=== PATIENT | male | born 1965 | race Caucasian/White ===

== ENCOUNTER 2019-09-04 12:43 | Emergency (ER) | payer OTHER ==
[~2019-09-04] VITALS: Ht 193 cm; Wt 111.1 kg
[2019-09-04 14:06] LABS: BASOPHILS ABSOLUTE AUTO 0.01 K/mm3 (0.00-0.23); BASOPHILS PERCENT AUTO 0 % (0-2); EOSINOPHILS ABSOLUTE AUTO 0.03 K/mm3 (0.00-0.68); EOSINOPHILS PERCENT AUTO 0 % (0-6); Hematocrit 42.4 % (37.0-53.0); Hemoglobin 14.8 g/dL (13.5-17.5); IMMATURE GRAN ABSOLUTE AUTO 0.01 K/mm3 (0.00-0.10); IMMATURE GRAN PERCENT AUTO 0 % (0-1); LYMPHOCYTES ABSOLUTE AUTO 1.35 K/mm3 (0.84-5.20); LYMPHOCYTES PERCENT AUTO 16 % (21-46); MONOCYTES PERCENT AUTO 7 % (4-13); Mean Corpuscular HGB 30.4 pg (26.0-34.0); Mean Corpuscular HGB Conc 34.9 g/dL (31.5-36.5); Mean Corpuscular Volume 87 fL (80-100); Mean Platelet Volume 9.9 fL (9.1-12.4); NEUTROPHILS ABSOLUTE AUTO 6.24 K/mm3 (1.96-9.15); NEUTROPHILS PERCENT AUTO 76 % (41-73); Platelet Count 199 K/mm3 (150-400); RDW Coefficient Variation 11.8 % (11.7-14.2); RDW Standard Deviation 37.9 fL (35.1-46.3); Red Blood Cell Count 4.87 M/mm3 (4.30-5.90); White Blood Cell Count 8.24 K/mm3 (4.00-11.30)
[2019-09-04 14:22] LABS: Alanine Aminotransfer (ALT/SGP 30 U/L (12-78); Albumin, Blood 4.2 g/dL (3.4-5.0); Albumin/Globulin Ratio 1.2 (0.8-1.8); Alk Phos 66 U/L (50-136); Anion Gap 5 mmol/L (6-16); Aspartate Aminotrans (AST/SGOT 20 U/L (12-37); Bilirubin, Total 0.7 mg/dL (0.1-1.0); Blood Urea Nitrogen 21 mg/dL (8-24); Bun/Creatinine Ratio 30.1 (12.0-20.0); CO2, Blood 28 mmol/L (21-32); Calcium, Blood 9.4 mg/dL (8.5-10.1); Chloride, Blood 106 mmol/L (98-108); Ethanol (Alcohol), Blood, Med <3 mg/dL; Globulin, Blood 3.5 g/dL (2.2-4.0); Glomerular Filtration Rate >60 (60-); Glucose, Blood 213 mg/dL (70-99); Magnesium, Blood 2.1 mg/dL (1.6-2.4); Potassium, Blood 3.7 mmol/L (3.5-5.5); Sodium, Blood 139 mmol/L (136-145); Total Protein, Blood 7.7 g/dL (6.4-8.2)
[2019-09-04] MEDS ORDERED: ONDA4ODT MM (15:11)
== END 2019-09-04 15:21 | disposition home or self-care (01) ==
LOC: ER 12:43
PROVIDERS: Emergency Medicine
DX: E86.0 Dehydration (principal); R11.2 Nausea with vomiting, unspecified; Z87.891 Personal history of nicotine dependence
CPT/HCPCS: 36415; 80053; 83735; 85025; 96361; 96374; 99283-25; G0480; J2405; J7030

== ENCOUNTER 2019-10-11 13:32 | Emergency (ER) | payer OTHER ==
[~2019-10-11] VITALS: Ht 193 cm; Wt 108.9 kg
[~2019-10-11 13:32] MED LIST: ATOR80 PO; CLOTRIMAZOLE 321 GM TOP; GLIM4 PO; LISI20 PO; METF500 PO; Naltrexone HCl50 MG PO; ONDA4ODT MM; PIOG30 PO; Prozac40 MG PO
[2019-10-11] MEDS ORDERED: ABILIFY MYCITE2 MG PO (13:40)
[2019-10-11] MEDS ORDERED: Monodox100 MG PO (14:11)
[2019-10-11] MEDS ORDERED: CEPH500 PO (14:11)
== END 2019-10-11 14:26 | disposition home or self-care (01) ==
LOC: ER 13:32
DX: L03.031 Cellulitis of right toe (principal); E11.9 Type 2 diabetes mellitus without complications; Z79.84 Long term (current) use of oral hypoglycemic drugs; Z79.899 Other long term (current) drug therapy
CPT/HCPCS: 99283

== ENCOUNTER 2022-02-02 11:31 | Emergency (ER) | payer OTHER ==
[~2022-02-02] VITALS: Ht 193 cm; Wt 111.1 kg
[~2022-02-02 11:31] MED LIST changes: +ABILIFY MYCITE2 MG PO; +CEPH500 PO; +Monodox100 MG PO
[2022-02-02 13:04] LABS: BASOPHILS ABSOLUTE AUTO 0.01 K/mm3 (0.00-0.23); BASOPHILS PERCENT AUTO 0 % (0-2); EOSINOPHILS ABSOLUTE AUTO 0.25 K/mm3 (0.00-0.68); EOSINOPHILS PERCENT AUTO 3 % (0-6); Hematocrit 28.8 % (37.0-53.0); Hemoglobin 9.4 g/dL (13.5-17.5); IMMATURE GRAN ABSOLUTE AUTO 0.04 K/mm3 (0.00-0.10); IMMATURE GRAN PERCENT AUTO 1 % (0-1); LYMPHOCYTES ABSOLUTE AUTO 1.49 K/mm3 (0.84-5.20); LYMPHOCYTES PERCENT AUTO 20 % (21-46); MONOCYTES ABSOLUTE AUTO 0.51 K/mm3 (0.16-1.47); MONOCYTES PERCENT AUTO 7 % (4-13); Mean Corpuscular HGB 28.7 pg (26.0-34.0); Mean Corpuscular HGB Conc 32.6 g/dL (31.5-36.5); Mean Corpuscular Volume 88 fL (80-100); Mean Platelet Volume 10.2 fL (9.1-12.4); NEUTROPHILS ABSOLUTE AUTO 5.19 K/mm3 (1.96-9.15); NEUTROPHILS PERCENT AUTO 69 % (41-73); Platelet Count 306 K/mm3 (150-400); RDW Coefficient Variation 12.3 % (11.7-14.2); RDW Standard Deviation 40.2 fL (35.1-46.3); Red Blood Cell Count 3.27 M/mm3 (4.30-5.90); White Blood Cell Count 7.49 K/mm3 (4.00-11.30)
[2022-02-02 13:25] LABS: Albumin/Globulin Ratio 0.7 (0.8-1.8); Bilirubin, Total 0.2 mg/dL (0.1-1.0); Bun/Creatinine Ratio 27.9 (12.0-20.0); Calcium, Blood 8.5 mg/dL (8.5-10.1); Creatinine, Blood 1.11 mg/dL (0.60-1.20); Globulin, Blood 4.3 g/dL (2.2-4.0); Potassium, Blood 4.1 mmol/L (3.5-5.5); Total Protein, Blood 7.3 g/dL (6.4-8.2)
== END 2022-02-02 16:38 | disposition left against medical advice (07) ==
LOC: ER 11:31
PROVIDERS: Physician Assistant
DX: L08.9 Local infection of the skin and subcutaneous tissue, unspecified (principal); Z53.21 Procedure and treatment not carried out due to patient leaving prior to being seen by health care provider
CPT/HCPCS: 36415; 73630; 80053; 85025

== ENCOUNTER → 2022-02-04 | Outpatient (CLI) | payer OTHER ==
[2022-02-04 12:44] LABS: BASOPHILS ABSOLUTE AUTO 0.02 K/mm3 (0.00-0.23); BASOPHILS PERCENT AUTO 0 % (0-2); EOSINOPHILS ABSOLUTE AUTO 0.14 K/mm3 (0.00-0.68); EOSINOPHILS PERCENT AUTO 1 % (0-6); Hematocrit 28.8 % (37.0-53.0); Hemoglobin 9.5 g/dL (13.5-17.5); IMMATURE GRAN ABSOLUTE AUTO 0.03 K/mm3 (0.00-0.10); IMMATURE GRAN PERCENT AUTO 0 % (0-1); LYMPHOCYTES ABSOLUTE AUTO 1.87 K/mm3 (0.84-5.20); LYMPHOCYTES PERCENT AUTO 18 % (21-46); MONOCYTES ABSOLUTE AUTO 0.65 K/mm3 (0.16-1.47); MONOCYTES PERCENT AUTO 6 % (4-13); Mean Corpuscular HGB 28.9 pg (26.0-34.0); Mean Corpuscular Volume 88 fL (80-100); Mean Platelet Volume 9.6 fL (9.1-12.4); NEUTROPHILS ABSOLUTE AUTO 7.44 K/mm3 (1.96-9.15); NEUTROPHILS PERCENT AUTO 73 % (41-73); Platelet Count 321 K/mm3 (150-400); RDW Coefficient Variation 12.5 % (11.7-14.2); RDW Standard Deviation 40.3 fL (35.1-46.3); Red Blood Cell Count 3.29 M/mm3 (4.30-5.90); White Blood Cell Count 10.15 K/mm3 (4.00-11.30)
[2022-02-04 13:38] LABS: Albumin, Blood 2.9 g/dL (3.4-5.0); Albumin/Globulin Ratio 0.7 (0.8-1.8); Bilirubin, Total 0.3 mg/dL (0.1-1.0); Bun/Creatinine Ratio 23.8 (12.0-20.0); Calcium, Blood 9.2 mg/dL (8.5-10.1); Creatinine, Blood 0.84 mg/dL (0.60-1.20); Globulin, Blood 4.3 g/dL (2.2-4.0); Potassium, Blood 3.8 mmol/L (3.5-5.5); Total Protein, Blood 7.2 g/dL (6.4-8.2)
== END | disposition home or self-care (01) ==
LOC: LAB SHORT 12:39
PROVIDERS: Emergency Medicine
DX: L08.9 Local infection of the skin and subcutaneous tissue, unspecified (principal)
CPT/HCPCS: 80053; 85025; 85651; 86140

== ENCOUNTER 2022-02-21 03:00 | Day surgery (SDC) | payer OTHER | END 2022-02-21 23:10 | disposition home or self-care (01) | LOC: WOUND 03:00 | DX: E11.621 Type 2 diabetes mellitus with foot ulcer (principal); L97.522 Non-pressure chronic ulcer of other part of left foot with fat layer exposed; L97.526 Non-pressure chronic ulcer of other part of left foot with bone involvement without evidence of necrosis; I73.9 Peripheral vascular disease, unspecified; E11.40 Type 2 diabetes mellitus with diabetic neuropathy, unspecified; E11.59 Type 2 diabetes mellitus with other circulatory complications; F17.200 Nicotine dependence, unspecified, uncomplicated | CPT/HCPCS: 99406; A9270; G0463 ==

== ENCOUNTER 2022-02-27 16:05 | Inpatient (IN) | payer OTHER ==
[~2022-02-27] VITALS: Ht 193 cm; Wt 110.0 kg
[2022-02-27 16:33] LABS: BASOPHILS ABSOLUTE AUTO 0.03 K/mm3 (0.00-0.23); BASOPHILS PERCENT AUTO 0 % (0-2); EOSINOPHILS ABSOLUTE AUTO 0.04 K/mm3 (0.00-0.68); EOSINOPHILS PERCENT AUTO 0 % (0-6); Hematocrit 25.7 % (37.0-53.0); Hemoglobin 8.5 g/dL (13.5-17.5); IMMATURE GRAN ABSOLUTE AUTO 0.12 K/mm3 (0.00-0.10); IMMATURE GRAN PERCENT AUTO 1 % (0-1); LYMPHOCYTES PERCENT AUTO 6 % (21-46); MONOCYTES ABSOLUTE AUTO 1.28 K/mm3 (0.16-1.47); MONOCYTES PERCENT AUTO 7 % (4-13); Mean Corpuscular HGB Conc 33.1 g/dL (31.5-36.5); Mean Corpuscular Volume 85 fL (80-100); Mean Platelet Volume 10.3 fL (9.1-12.4); NEUTROPHILS ABSOLUTE AUTO 16.18 K/mm3 (1.96-9.15); NEUTROPHILS PERCENT AUTO 86 % (41-73); Platelet Count 404 K/mm3 (150-400); RDW Coefficient Variation 12.4 % (11.7-14.2); Red Blood Cell Count 3.04 M/mm3 (4.30-5.90); White Blood Cell Count 18.75 K/mm3 (4.00-11.30)
[2022-02-27 16:53] LABS: Albumin, Blood 2.5 g/dL (3.4-5.0); Albumin/Globulin Ratio 0.5 (0.8-1.8); Bilirubin, Total 0.5 mg/dL (0.1-1.0); Bun/Creatinine Ratio 22.1 (12.0-20.0); Calcium, Blood 8.7 mg/dL (8.5-10.1); Creatinine, Blood 1.45 mg/dL (0.60-1.20); Globulin, Blood 4.6 g/dL (2.2-4.0); Potassium, Blood 3.5 mmol/L (3.5-5.5); Total Protein, Blood 7.1 g/dL (6.4-8.2)
[2022-02-27] MEDS ORDERED: Hydroxyzine HCl50 MG (18:27)
[2022-02-27] MEDS ORDERED: FER-IN-SOL15 MG/1 M1 PO (18:27)
[2022-02-27] MEDS ORDERED: Cipro500 MG PO (18:27)
[2022-02-27] MEDS ORDERED: INSULIN GL100 UNIT/2 SQ (18:27)
[2022-02-27] MEDS ORDERED: ALOGLIPTIN25 M7 PO (18:28)
[2022-02-27] MEDS ORDERED: OMEP20ER PO (18:28)
[2022-02-27 20:09] LABS: Influenza A, PCR NEGATIVE (NEGATIVE); Influenza B, PCR NEGATIVE (NEGATIVE); Resp Syncytial Virus, PCR NEGATIVE (NEGATIVE); SARS-Cov-2 (COVID-19) PCR, MMC NEGATIVE (NEGATIVE)
[2022-02-27 20:41] LABS: Source, Urine Clean Catch
[2022-02-27 20:48] LABS: Appearance, Urine Clear (Clear); Bilirubin, Urine Neg (Neg); Blood, Urine 2+ (Neg); Color, Urine Yellow (P-Yellow); Glucose Qualitative, Urine Neg (Neg); Ketones, Urine Neg (Neg); Leukocyte Esterase, Urine Neg (Neg); Nitrite, Urine Neg (Neg); Protein, Urine 2+ (Neg); Urobilinogen, Urine NORM (Normal)
[2022-02-27 20:56] LABS: Bacteria Few /hpf; Hyaline Casts 0-2 /lpf (0-2); Squamous Epithelial Cells Rare /hpf (Few)
[2022-02-28] MEDS ORDERED: OMEP20ER PO (00:37)
[2022-02-28] MEDS ORDERED: FeroSul 325 mg (65 m (01:53)
[2022-02-28 04:02] LABS: Hematocrit 19.9 % (37.0-53.0); Hemoglobin 6.5 g/dL (13.5-17.5); Mean Corpuscular HGB 27.8 pg (26.0-34.0); Mean Corpuscular HGB Conc 32.7 g/dL (31.5-36.5); Mean Corpuscular Volume 85 fL (80-100); Mean Platelet Volume 10.5 fL (9.1-12.4); Platelet Count 276 K/mm3 (150-400); RDW Coefficient Variation 12.4 % (11.7-14.2); RDW Standard Deviation 38.4 fL (35.1-46.3); Red Blood Cell Count 2.34 M/mm3 (4.30-5.90); White Blood Cell Count 12.38 K/mm3 (4.00-11.30)
--- NOTE | 2022-02-28 04:17 | NUR ---
CALL TO HOSPITALIST THIS RN CALLS DR FISHER TO NOTIFY OF HYPOTENSION, DR FISHER ORDERS OT LR BOLUS NOW AND STATES IF PT DOES NOT RESPOND WITHIN 20 MINS OF BOLUS PT WILL NEED TO TRANSFER TO ICU.
[2022-02-28 04:26] LABS: Bun/Creatinine Ratio 25.6 (12.0-20.0); Calcium, Blood 7.4 mg/dL (8.5-10.1); Creatinine, Blood 1.29 mg/dL (0.60-1.20); Potassium, Blood 3.5 mmol/L (3.5-5.5)
[2022-02-28 05:27] LABS: Percent Saturation 10.5 % (20.0-50.0)
--- NOTE | 2022-02-28 07:47 | NUR ---
SHIFT SUMMARY PT AOX4, PALE ON ARRIVAL TO UNIT. BOLUS FINISHED FROM ARRIVAL TO ROOM FROM ER. EPISODE OF AFIB W/RATE IN 130'S REPORTED BY ER ON ROUTE OVER TO PCU. RESOLVED ON ARRIVAL. EKG PERFORMED AND TROPONIN DRAWN PER DR FISHER. PT DENIED CP. SBP DROPPED AFTER START OF ZOSYN INFUSION THIS AM, AFTER HYPOTENSION CONTINUED FLUID BOLUS OF LR ORDERED AFTER CONTACTING DR FISHER. PT BP REMAINED LOW T/O BOLUS, ORDER TO TRANSFER TO ICU. TRANSFER CANCELED D/T SBP INCREASING TO 110'S-120'S MAPS >70. DIFFICULTY DRAWING BLOOD THIS AM AFTER MULTIPLE ATTEMPTS BY STAFF. POWERGLIDE PLACED BY CECILIO SMITH. NS MAINTENANCE FLUID CONTINUES INFUSING THIS AM W/ ZOSYN CONTINUING CONCURRENT.
--- NOTE | 2022-02-28 09:02 | NUR ---
CARE ASSUMPTION THIS RN ASSUMED CARE AT 0700. VSS. TELE SR 70S. PATIENT REPORTS NO PAIN, NO CHEST PAIN/PRESSURE AND NO SHORTNESS OF BREATH. PATIENT IS ALERT AND ORIENTED X4. PATIENT IS INDEPDENT, AND THIS RN HAS THE PATIENT CALL SO THAT WE CAN ASSSIT WITH THE CORDS AND LINES. PATIENT HAS A LEFT FOOT INFECTION. PICTURES ARE IN CHART. PATIENT LUNG SOUNDS ARE CLEAR. SEE SHIFT ASSESSMENT FOR FURTHER DETIALS. PATIENT IS RECEIVING ONE UNIT OF BLOOD. THIS RN EDUCATED THE PATIENT ON BLOOD TRANSFUSION REACTIONS. VITAL SIGNS REMAIN STABLE. NICOLETTE KHAN AND JADEN BY TO SEE PATIENT THIS AM AND DISCUSSED PLAN OF CARE. PLAN OF CARE IS UP TO DATE CALL LIGHT WITHIN REACH AND BED IN LOWEST POSITION.
--- NOTE | 2022-02-28 10:31 | NUR ---
Echocardiogram completed.
--- NOTE | 2022-02-28 11:10 | NUR ---
UPDATE PATIENT WILL GO INTO SURGERY THIS AFTERNOON. PATIENT IS GOING TO RECEIVE ANOTHER UNIT OF BLOOD PER MD ORDERS.
--- NOTE | 2022-02-28 11:48 | NUR ---
BLOOD 2ND BLOOD TRANSFUSION STARTED.
--- NOTE | 2022-02-28 12:40 | NUR ---
LEFT FOR SURGERY PATIENT LEFT AT APPROX 1215 FOR SURGERY.
--- NOTE | 2022-02-28 16:19 | NUR ---
BACK FROM SURGERY PATIENT BACK FROM DAY SURGERY. 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 VSS. PATIENT IN PAIN RATED AT 9 OUT OF 110, WITH 19 BEING THE WORST PAIN. NOTIFED SURGERON. AND WILL MEDICATE PER ORDERS.
[2022-02-28 16:37] LABS: Hematocrit 23.9 % (37.0-53.0); Hemoglobin 7.7 g/dL (13.5-17.5)
--- NOTE | 2022-02-28 17:29 | NUR ---
SHIFT SUMMARY PATIENT NEURO REMAINS INTACT. VITAL SIGNS REMAIN STABLE. PATIENT HAD A BELOW KNEE AMPUTATION. LIMB HAS BEEN ELEVATED ON A PILLOW. PATIENT RECEIVED PAIN MED PER EMAR THAT BROUGHT PAIN DOWN TO A 5. PLAN OF CARE IS UP TO DATE. PATIENT USES CALL LIGHT APPROPRIATELY TO MAKE NEEDS KNOWN. CALL LIGHT WITHIN REACH WITH BED IN LOWEST POSITION.
[2022-02-28 20:31] LABS: Vancomycin, Trough 18.4 ug/mL (5.0-10.0)
--- NOTE | 2022-03-01 01:19 | NUR ---
IV IN RIGHT WRIST REMOVED DUE TO BEING UNABLE TO FLUSH. CATHETER INTACT WITH REMOVAL.
[2022-03-01 05:06] LABS: BASOPHILS ABSOLUTE AUTO 0.01 K/mm3 (0.00-0.23); BASOPHILS PERCENT AUTO 0 % (0-2); EOSINOPHILS ABSOLUTE AUTO 0.01 K/mm3 (0.00-0.68); EOSINOPHILS PERCENT AUTO 0 % (0-6); Hematocrit 22.3 % (37.0-53.0); Hemoglobin 7.6 g/dL (13.5-17.5); IMMATURE GRAN ABSOLUTE AUTO 0.11 K/mm3 (0.00-0.10); IMMATURE GRAN PERCENT AUTO 1 % (0-1); LYMPHOCYTES ABSOLUTE AUTO 0.77 K/mm3 (0.84-5.20); LYMPHOCYTES PERCENT AUTO 7 % (21-46); MONOCYTES ABSOLUTE AUTO 0.68 K/mm3 (0.16-1.47); MONOCYTES PERCENT AUTO 7 % (4-13); Mean Corpuscular HGB 28.3 pg (26.0-34.0); Mean Corpuscular HGB Conc 34.1 g/dL (31.5-36.5); Mean Corpuscular Volume 83 fL (80-100); Mean Platelet Volume 10.3 fL (9.1-12.4); NEUTROPHILS ABSOLUTE AUTO 8.91 K/mm3 (1.96-9.15); NEUTROPHILS PERCENT AUTO 85 % (41-73); Platelet Count 313 K/mm3 (150-400); RDW Standard Deviation 39.3 fL (35.1-46.3); Red Blood Cell Count 2.69 M/mm3 (4.30-5.90); White Blood Cell Count 10.49 K/mm3 (4.00-11.30)
[2022-03-01 05:55] LABS: Albumin, Blood 1.8 g/dL (3.4-5.0); Anion Gap 10 mmol/L (6-16); Blood Urea Nitrogen 31 mg/dL (8-24); Bun/Creatinine Ratio 25.4 (12.0-20.0); CO2, Blood 22 mmol/L (21-32); Calcium, Blood 7.8 mg/dL (8.5-10.1); Chloride, Blood 103 mmol/L (98-108); Creatinine, Blood 1.22 mg/dL (0.60-1.20); Glomerular Filtration Rate 70 (60-); Glucose, Blood 226 mg/dL (70-99); Phosphorus, Blood 4.4 mg/dL (2.5-4.9); Potassium, Blood 3.9 mmol/L (3.5-5.5); Sodium, Blood 135 mmol/L (136-145)
--- NOTE | 2022-03-01 07:37 | NUR ---
SHIFT SUMMARY PT AOX4, SOME DROWSINESS W/PAIN MEDICATIONS. VERY ACTIVE IN BED, FREQUENTLY REPOSITIONING AND RESTLESS. DRESSING CAME OFF TWICE HAD TO BE REPLACED BY STAFF. SOME SPOTTING FROM R SIDE OF L BKA SITE. THIS RN REPLACED DRESSING THIS AM A THIRD TIME TO EXAMINE SITE D/T PT STATING HE ACCIDENTALLY DROPPED SITE TO FLOOR FORGETTING THE BKA WHEN HE WAS SITTING ON THE EDGE OF BED TO USE THE URINAL THIS AM. PT SEEMS TO FREQUENTLY FORGET FOOT IS GONE ON L. SEEMED IN [employer] T/O SHIFT DESPITE RESTLESSNESS AND PAIN. PAIN SEEMED WELL CONTROLLED WITH MEDICATIONS PER EMAR.
--- NOTE | 2022-03-01 09:03 | NUR ---
03/01/22 0903 Itzel Rayo VERIFICATIONS: EDIT CHART.
--- NOTE | 2022-03-01 13:08 | NUR ---
PATIENT ARRIVED TO SURGICAL UNIT VIA BED. VSS ON RA. PAIN REPORTED TO BE 7/10 TO LEFT LEG, PLAN TO MEDICATE PER EMAR. PATIENT REPORTS IT TO BE PHANTOM PAIN. STUMP SOCK IN PLACE, C/D/I. ORIENTED TO ROOM & CALL LIGHT.
--- NOTE | 2022-03-01 17:27 | NUR ---
SHIFT SUMMARY NO ACUTE CHANGES SINCE ARRIVAL TO UNIT. POD 1 LEFT BKA, STUMP SOCK IN PALCE, C/D/I. PAIN MANAGED PER EMAR. EATING, DRINKING, & VOIDING WELL W/O DIFFICULTY. CALL LIGHT IN REACH, WILL REPORT TO ONCOMING RN AT 1900.
[2022-03-02 04:36] LABS: BASOPHILS ABSOLUTE AUTO 0.02 K/mm3 (0.00-0.23); BASOPHILS PERCENT AUTO 0 % (0-2); EOSINOPHILS ABSOLUTE AUTO 0.12 K/mm3 (0.00-0.68); EOSINOPHILS PERCENT AUTO 2 % (0-6); Hematocrit 21.4 % (37.0-53.0); Hemoglobin 7.3 g/dL (13.5-17.5); IMMATURE GRAN ABSOLUTE AUTO 0.09 K/mm3 (0.00-0.10); IMMATURE GRAN PERCENT AUTO 1 % (0-1); LYMPHOCYTES ABSOLUTE AUTO 1.16 K/mm3 (0.84-5.20); LYMPHOCYTES PERCENT AUTO 15 % (21-46); MONOCYTES ABSOLUTE AUTO 0.84 K/mm3 (0.16-1.47); MONOCYTES PERCENT AUTO 11 % (4-13); Mean Corpuscular HGB 28.6 pg (26.0-34.0); Mean Corpuscular HGB Conc 34.1 g/dL (31.5-36.5); Mean Corpuscular Volume 84 fL (80-100); Mean Platelet Volume 10.4 fL (9.1-12.4); NEUTROPHILS ABSOLUTE AUTO 5.77 K/mm3 (1.96-9.15); NEUTROPHILS PERCENT AUTO 72 % (41-73); Platelet Count 313 K/mm3 (150-400); RDW Coefficient Variation 12.9 % (11.7-14.2); RDW Standard Deviation 39.4 fL (35.1-46.3); Red Blood Cell Count 2.55 M/mm3 (4.30-5.90)
[2022-03-02 05:04] LABS: Vancomycin, Trough 11.2 ug/mL (5.0-10.0)
[2022-03-02 05:09] LABS: Albumin, Blood 1.8 g/dL (3.4-5.0); Anion Gap 6 mmol/L (6-16); Blood Urea Nitrogen 28 mg/dL (8-24); Bun/Creatinine Ratio 29.1 (12.0-20.0); CO2, Blood 26 mmol/L (21-32); Calcium, Blood 7.9 mg/dL (8.5-10.1); Chloride, Blood 105 mmol/L (98-108); Creatinine, Blood 0.96 mg/dL (0.60-1.20); Glomerular Filtration Rate 93 (60-); Glucose, Blood 199 mg/dL (70-99); Phosphorus, Blood 2.9 mg/dL (2.5-4.9); Sodium, Blood 137 mmol/L (136-145)
--- NOTE | 2022-03-02 06:12 | NUR ---
Patient dressing clean, dry, and intact. PRN meds given. Moderate x1 nurse assist from bed to bedside commode, x1 bowel movement. Voiding well. 0600 Patient sleeping. No acute questions or concerns at this time.
--- NOTE | 2022-03-02 14:56 | NUR ---
SHIFT SUMMARY: POD 2 LEFT BKA NO SIGNIFICANT CHANGES DURING THE SHIFT. PAIN IS MANAGED WITH ORAL PAIN MEDICATIONS. DR. DUMONT WENT IN AND CHANGED THE DRESSING SO THE DRESSING IS C/D/I WITH HIS STUMP SOCK OVER THE AQUACEL. HE IS A SBA WITH FWW TO THE BSC OR CHAIR. PATIENT IS TOLERATING SMALL AMOUNTS OF PO INTAKE AND HAS STATED "I JUST DON'T REALLY LIKE THE FOOD HERE". PATIENT IS VOIDING AND HAD A SMEAR OF A BM THIS MORNING. CALLS APPROPRIATELY. CALL LIGHT WITHIN REACH. THE PLAN IS FOR THE PATIENT TO BE DISCHARGED TO A SNF WHEN A BED IS AVAILABLE.
[2022-03-02 15:44] LABS: Hematocrit 25.1 % (37.0-53.0); Hemoglobin 8.3 g/dL (13.5-17.5)
--- NOTE | 2022-03-03 04:43 | NUR ---
LACROSSE PLAYER SUMMARY PT IS POD 2 FOR A L BKA. PT DOES FAIRLY WELL AMBULATING TO [facility] USING FWW AND STAFF ASSIST. MEDICATED FOR L LEG PAIN X1 AT BEDTIME WITH ORDERED PERCOCET. PT DOES COMPLAIN OF SOME PHANTOM PAINS AND FEELINGS OF HIS L LEG. PT GIVEN PRN ATARAX THIS AM FOR A SPELL OF ANXIETY. PRN HYDRALAZINE REQUIRED FOR HTN THIS AM. WILL CONTINUE TO MONITOR.
--- NOTE | 2022-03-03 05:30 | NUR ---
HYPERTENSION SBP >170 WITH MORNING VITALS. PT HAS PRN IV HYDRALAZINE BUT DOES NOT HAVE IV ACCESS PER ORDER. NOTIFIED DR FISHER WHO GAVE ORDER TO GIVE 0900 SCHEDULED NORVASC AND LISINOPRIL NOW. MEDS GIVEN PER ORDER, WILL CONTINUE TO MONITOR.
--- NOTE | 2022-03-03 07:36 | NUR ---
DR STANLEY IN TO SEE PT. DISCUSSED HYPERTENSION AND ANXIETY.
--- NOTE | 2022-03-03 11:42 | NUR ---
CALLED REPORT TO [facility] AT [facility].
--- NOTE | 2022-03-03 12:07 | NUR ---
PT LEFT UNIT IN WC WITH TRANSPORT POSSESSIONS IN HAND. TRANSPORTER HAS DC PAPERWORK.
== END 2022-03-03 12:07 | DRG 853 ==
LOC: ER 16:05 → SURS 22:09 → PCU 22:09 → SURS 03-01 13:11
PROVIDERS: Family Medicine Adult Medicine; Internal Medicine; Student in an Organized Health Care Education/Training Program; ADMIT Internal Medicine
PROC: 3E03329 Introduction of Other Anti-infective into Peripheral Vein, Percutaneous Approach (ICD-10-PCS; principal; 2022-02-27)
PROC: 3E02340 Introduction of Influenza Vaccine into Muscle, Percutaneous Approach (ICD-10-PCS; 2022-02-27)
PROC: 30233N1 Transfusion of Nonautologous Red Blood Cells into Peripheral Vein, Percutaneous Approach (ICD-10-PCS; 2022-02-28)
PROC: 0Y6J0Z3 Detachment at Left Lower Leg, Low, Open Approach (ICD-10-PCS; 2022-02-28)
DX: A41.9 Sepsis, unspecified organism (principal); I21.A1 Myocardial infarction type 2; M86.171 Other acute osteomyelitis, right ankle and foot; N17.9 Acute kidney failure, unspecified; E87.1 Hypo-osmolality and hyponatremia; E11.52 Type 2 diabetes mellitus with diabetic peripheral angiopathy with gangrene; I96 Gangrene, not elsewhere classified; Z23 Encounter for immunization; Z20.822 Contact with and (suspected) exposure to COVID-19; R65.20 Severe sepsis without septic shock; I95.9 Hypotension, unspecified; D63.8 Anemia in other chronic diseases classified elsewhere; G54.7 Phantom limb syndrome without pain; E11.628 Type 2 diabetes mellitus with other skin complications; Z88.8 Allergy status to other drugs, medicaments and biological substances; Z79.2 Long term (current) use of antibiotics; Z79.4 Long term (current) use of insulin; Z79.899 Other long term (current) drug therapy
CPT/HCPCS: 0241U; 36415; 71046; 73630; 80048; 80053; 80069; 80202; 81001; 82728; 82947; 83036; 83540; 83550; 83605; 83735; 83880; 84484; 85014; 85018; 85025; 85027; 85651; 86140; 86141; 86850; 86900; 86901; 86923; 87040; 88307; 90686; 93005; 93010; 93306; 96365; 96366; 96367; 96368; 96375; 97110; 97162; 97166; 97530; 97535; 99285-25; A9270; C1751; C9113; J0171; J0744; J1100; J1170; J1815; J2185; J2250; J2270; J2370; J2405; J2543; J2704; J3010; J3370; J7030; J7050; J7120; P9016

== ENCOUNTER 2022-05-18 02:20 | Day surgery (SDC) | payer OTHER ==
[~2022-05-18 02:20] MED LIST changes: +ALOGLIPTIN25 M7 PO; +Cipro500 MG PO; +FER-IN-SOL15 MG/1 M1 PO; +FeroSul 325 mg (65 m; +Hydroxyzine HCl50 MG; +INSULIN GL100 UNIT/2 SQ; +OMEP20ER PO
== END 2022-05-18 22:54 | disposition home or self-care (01) ==
LOC: WOUND 02:20
DX: E11.621 Type 2 diabetes mellitus with foot ulcer (principal); L97.412 Non-pressure chronic ulcer of right heel and midfoot with fat layer exposed; E11.51 Type 2 diabetes mellitus with diabetic peripheral angiopathy without gangrene; E11.40 Type 2 diabetes mellitus with diabetic neuropathy, unspecified; F17.208 Nicotine dependence, unspecified, with other nicotine-induced disorders
CPT/HCPCS: A9270; G0463

== ENCOUNTER 2022-05-25 01:13 | Day surgery (SDC) | payer OTHER | END 2022-05-25 23:04 | disposition home or self-care (01) | LOC: WOUND 01:13 | DX: E11.621 Type 2 diabetes mellitus with foot ulcer (principal); L97.512 Non-pressure chronic ulcer of other part of right foot with fat layer exposed; E11.51 Type 2 diabetes mellitus with diabetic peripheral angiopathy without gangrene; E11.40 Type 2 diabetes mellitus with diabetic neuropathy, unspecified; F17.208 Nicotine dependence, unspecified, with other nicotine-induced disorders | CPT/HCPCS: A9270; G0463 ==

== ENCOUNTER 2022-06-01 02:31 | Day surgery (SDC) | payer OTHER | END 2022-06-01 23:32 | disposition home or self-care (01) | LOC: WOUND 02:31 | DX: E11.621 Type 2 diabetes mellitus with foot ulcer (principal); L97.512 Non-pressure chronic ulcer of other part of right foot with fat layer exposed; E11.51 Type 2 diabetes mellitus with diabetic peripheral angiopathy without gangrene; E11.40 Type 2 diabetes mellitus with diabetic neuropathy, unspecified; E11.59 Type 2 diabetes mellitus with other circulatory complications; F17.208 Nicotine dependence, unspecified, with other nicotine-induced disorders; I10 Essential (primary) hypertension | CPT/HCPCS: A9270; G0463 ==

== ENCOUNTER 2022-06-23 03:57 | Day surgery (SDC) | payer OTHER | END 2022-06-23 22:43 | disposition home or self-care (01) | LOC: WOUND 03:57 | DX: E11.621 Type 2 diabetes mellitus with foot ulcer (principal); L97.519 Non-pressure chronic ulcer of other part of right foot with unspecified severity; I73.9 Peripheral vascular disease, unspecified; E11.40 Type 2 diabetes mellitus with diabetic neuropathy, unspecified; E11.59 Type 2 diabetes mellitus with other circulatory complications; F17.208 Nicotine dependence, unspecified, with other nicotine-induced disorders | CPT/HCPCS: G0463 ==

== ENCOUNTER 2022-07-19 09:49 | Day surgery (SDC) | payer OTHER ==
[~2022-07-19] VITALS: Ht 193 cm; Wt 28.9 kg
[2022-07-19 12:11] VITALS: BP 155/93
--- NOTE | 2022-07-19 12:12 | NUR ---
07/19/22 1212 Sarah Mendez IV DC'D, CATH INTACT. PRESSURE DRESSING APPLIED. PT TOLERATED WELL
== END 2022-07-19 12:13 | disposition home or self-care (01) ==
LOC: ORSCSDS 09:49
PROVIDERS: Internal Medicine Gastroenterology
PROC: 0DBH8ZX Excision of Cecum, Via Natural or Artificial Opening Endoscopic, Diagnostic (ICD-10-PCS; principal; 2022-07-19 11:15)
PROC: 0DB98ZX Excision of Duodenum, Via Natural or Artificial Opening Endoscopic, Diagnostic (ICD-10-PCS; principal; 2022-07-19 11:15)
PROC: 0DB68ZX Excision of Stomach, Via Natural or Artificial Opening Endoscopic, Diagnostic (ICD-10-PCS; principal; 2022-07-19 11:15)
DX: R19.4 Change in bowel habit (principal); R10.13 Epigastric pain; D50.9 Iron deficiency anemia, unspecified; D12.0 Benign neoplasm of cecum; K64.8 Other hemorrhoids; K44.9 Diaphragmatic hernia without obstruction or gangrene; K29.70 Gastritis, unspecified, without bleeding; E78.5 Hyperlipidemia, unspecified; I10 Essential (primary) hypertension; E11.9 Type 2 diabetes mellitus without complications; F17.210 Nicotine dependence, cigarettes, uncomplicated; Z79.4 Long term (current) use of insulin; Z79.84 Long term (current) use of oral hypoglycemic drugs; Z79.899 Other long term (current) drug therapy
CPT/HCPCS: 82947; 88305; 88342; J2704; J7120

== ENCOUNTER → 2023-01-05 | Outpatient (CLI) | payer OTHER ==
[2023-01-05 13:01] LABS: BASOPHILS ABSOLUTE AUTO 0.02 K/mm3 (0.00-0.23); BASOPHILS PERCENT AUTO 0 % (0-2); EOSINOPHILS ABSOLUTE AUTO 0.13 K/mm3 (0.00-0.68); EOSINOPHILS PERCENT AUTO 2 % (0-6); Hematocrit 29.8 % (37.0-53.0); Hemoglobin 10.4 g/dL (13.5-17.5); IMMATURE GRAN ABSOLUTE AUTO 0.03 K/mm3 (0.00-0.10); IMMATURE GRAN PERCENT AUTO 0 % (0-1); LYMPHOCYTES PERCENT AUTO 17 % (21-46); MONOCYTES ABSOLUTE AUTO 0.58 K/mm3 (0.16-1.47); MONOCYTES PERCENT AUTO 8 % (4-13); Mean Corpuscular HGB 29.1 pg (26.0-34.0); Mean Corpuscular HGB Conc 34.9 g/dL (31.5-36.5); Mean Corpuscular Volume 84 fL (80-100); Mean Platelet Volume 9.2 fL (9.1-12.4); NEUTROPHILS ABSOLUTE AUTO 5.53 K/mm3 (1.96-9.15); NEUTROPHILS PERCENT AUTO 73 % (41-73); Platelet Count 240 K/mm3 (150-400); RDW Coefficient Variation 13.5 % (11.7-14.2); RDW Standard Deviation 41.2 fL (35.1-46.3); Red Blood Cell Count 3.57 M/mm3 (4.30-5.90); White Blood Cell Count 7.59 K/mm3 (4.00-11.30)
[2023-01-05 13:13] LABS: Albumin, Blood 3.3 g/dL (3.4-5.0); Albumin/Globulin Ratio 1.1 (0.8-1.8); Bilirubin, Total 0.4 mg/dL (0.1-1.0); Bun/Creatinine Ratio 17.8 (12.0-20.0); Calcium, Blood 8.8 mg/dL (8.5-10.1); Creatinine, Blood 1.01 mg/dL (0.60-1.20); Globulin, Blood 3.1 g/dL (2.2-4.0); Potassium, Blood 3.9 mmol/L (3.5-5.5); Total Protein, Blood 6.4 g/dL (6.4-8.2)
== END ==
LOC: LAB 12:57 → LAB SHORT 12:57
PROVIDERS: Emergency Medicine
DX: E13.9 Other specified diabetes mellitus without complications (principal)
CPT/HCPCS: 80053; 85025

== ENCOUNTER 2023-01-10 07:54 | Emergency (ER) | payer OTHER ==
[~2023-01-10] VITALS: Ht 193 cm; Wt 101.2 kg
[2023-01-10] MEDS ORDERED: SULTRIDS PO (08:56)
[2023-01-10] MEDS ORDERED: Prozac20 MG (08:57)
[2023-01-10 10:12] VITALS: BP 159/88
== END 2023-01-10 10:11 | disposition home or self-care (01) ==
LOC: ER 07:54
DX: L02.31 Cutaneous abscess of buttock (principal); E11.9 Type 2 diabetes mellitus without complications; Z79.4 Long term (current) use of insulin; Z79.84 Long term (current) use of oral hypoglycemic drugs; Z79.899 Other long term (current) drug therapy
CPT/HCPCS: 10060; 99283-25

== ENCOUNTER 2023-02-24 01:22 | Day surgery (SDC) | payer OTHER ==
[~2023-02-24 01:22] MED LIST changes: +Prozac20 MG; +SULTRIDS PO
== END 2023-02-24 22:54 | disposition home or self-care (01) ==
LOC: WOUND 01:22
DX: L02.31 Cutaneous abscess of buttock (principal); I10 Essential (primary) hypertension
CPT/HCPCS: G0463

== ENCOUNTER 2023-03-06 08:19 | Emergency (ER) | payer OTHER ==
[~2023-03-06] VITALS: Ht 193 cm; Wt 108.9 kg
[2023-03-06] MEDS ORDERED: METO25ER PO (10:46)
[2023-03-06 11:01] LABS: BASOPHILS ABSOLUTE AUTO 0.02 K/mm3 (0.00-0.23); BASOPHILS PERCENT AUTO 0 % (0-2); EOSINOPHILS ABSOLUTE AUTO 0.38 K/mm3 (0.00-0.68); EOSINOPHILS PERCENT AUTO 4 % (0-6); Hematocrit 34.5 % (37.0-53.0); Hemoglobin 11.3 g/dL (13.5-17.5); IMMATURE GRAN ABSOLUTE AUTO 0.11 K/mm3 (0.00-0.10); IMMATURE GRAN PERCENT AUTO 1 % (0-1); LYMPHOCYTES ABSOLUTE AUTO 1.74 K/mm3 (0.84-5.20); LYMPHOCYTES PERCENT AUTO 16 % (21-46); MONOCYTES ABSOLUTE AUTO 1.08 K/mm3 (0.16-1.47); MONOCYTES PERCENT AUTO 10 % (4-13); Mean Corpuscular HGB 29.2 pg (26.0-34.0); Mean Corpuscular HGB Conc 32.8 g/dL (31.5-36.5); Mean Corpuscular Volume 89 fL (80-100); Mean Platelet Volume 10.6 fL (9.1-12.4); NEUTROPHILS ABSOLUTE AUTO 7.51 K/mm3 (1.96-9.15); NEUTROPHILS PERCENT AUTO 69 % (41-73); NRBC ABSOLUTE 0.03 K/mm3 (0.00-0.02); NRBC Auto 0.3 /100 WBC (0.0-0.2); Platelet Count 204 K/mm3 (150-400); RDW Coefficient Variation 14.1 % (11.7-14.2); RDW Standard Deviation 45.6 fL (35.1-46.3); Red Blood Cell Count 3.87 M/mm3 (4.30-5.90); White Blood Cell Count 10.84 K/mm3 (4.00-11.30)
[2023-03-06 11:13] LABS: Albumin, Blood 2.8 g/dL (3.4-5.0); Albumin/Globulin Ratio 0.8 (0.8-1.8); Bilirubin, Total 0.6 mg/dL (0.1-1.0); Bun/Creatinine Ratio 29.5 (12.0-20.0); Calcium, Blood 8.4 mg/dL (8.5-10.1); Creatinine, Blood 0.88 mg/dL (0.60-1.20); Globulin, Blood 3.7 g/dL (2.2-4.0); Potassium, Blood 4.2 mmol/L (3.5-5.5); Total Protein, Blood 6.5 g/dL (6.4-8.2)
[2023-03-06] MEDS ORDERED: Bactrim Ds Tab1 EACH PO (11:55)
[2023-03-06] MEDS ORDERED: CEPH500 PO (11:55)
[2023-03-06 12:12] VITALS: BP 136/92
== END 2023-03-06 12:14 | disposition home or self-care (01) ==
LOC: ER 08:19
PROVIDERS: Physician Assistant
DX: L03.317 Cellulitis of buttock (principal); E11.9 Type 2 diabetes mellitus without complications; Z79.4 Long term (current) use of insulin; Z79.84 Long term (current) use of oral hypoglycemic drugs; Z79.899 Other long term (current) drug therapy
CPT/HCPCS: 80053; 85025; 99283